=== PATIENT | female | born 1980 | race Caucasian/White ===

== ENCOUNTER 2016-10-27 09:45 | Inpatient (IN) | payer OTHER ==
[2016-10-27 10:40] LABS: BASOPHIL 0.5 % (0-2.0); EOSINOPHIL 1.4 % (0-4.5); MCH 27.9 pg (25.7-33.7); MCHC 32.5 g/dl (32.0-36.0); MEAN CELL VOLUME 85.9 fl (80-96); NEUTROPHILS 65.4 % (42.8-82.8); PLATELET COUNT 123 K/MM3 (134-434); RDW 17.8 % (11.6-15.6)
[2016-10-27] MEDS ORDERED: DINOPROSTONE 10 MG VAGINAL SUPPOSITORY VG ONE (10:45)
[2016-10-27] MEDS ORDERED: ELECTROLYTE-148 SOLN 1,000 ML IV ONE (10:45)
[2016-10-27] MEDS ORDERED: CITRIC ACID/SODIUM CITRATE 30 ML UNIT-DOSE CUP PO ONE (10:45)
[2016-10-27 10:48] VITALS: BMI 26.2
[2016-10-27 10:50] LABS: INR 0.9 (0.82-1.09); PROTHROMBIN TIME (PATIENT) 9.9 SEC (9.98-11.88)
[2016-10-27 10:52] LABS: ACTIVATED PTT 30.5 SECONDS (26.9-34.4)
[2016-10-27 10:58] LABS: ANION GAP 8 (8-16); CALCIUM 8.7 mg/dL (8.5-10.1); CO2 23 mmol/L (21-32); CREATININE 0.5 mg/dL (0.55-1.02); GLUCOSE,RANDOM 81 mg/dL (74-106)
--- NOTE | 2016-10-27 11:42 | PN ---
Progress Note (short form) - Note Progress Note: Patient without acute complaints 10/27/16 10/27/16 10:38 11:00 Temperature 98.2 F Pulse Rate 62 Respiratory 18 Rate Blood Pressure 106/67 ABD: soft, NT Cx: 1/long/high FHT: 130mod bhavani + accel, no decel TOCO: No Ctx Cervidil placed in posterior fornix. Risks / benefits / alternative discussed with accounts receivable supervisor. Patient expressed understanding
[2016-10-27] MEDS ORDERED: ELECTROLYTE-148 SOLN 1,000 ML IV SCH (11:45)
[2016-10-27] MEDS: DEXTROSE 5%-LACTATED RINGERS 1,000 ML IV SCH (15:20)
[2016-10-27] MEDS ORDERED: BUTORPHANOL TARTRATE 1 MG/ML VIAL IVPB ONE (21:00)
[2016-10-27] MEDS ORDERED: PROMETHAZINE HCL 25 MG/1 ML VIAL IVPB ONE (21:00)
[2016-10-27] MEDS: D5W-LR W/ 20 UNITS OXYTOCIN 1,000 ML IV SCH (21:30)
[2016-10-27] MEDS ORDERED: METHYLERGONOVINE MALEATE 0.2 MG/1 ML AMP IM PRN (22:01)
[2016-10-27] MEDS ORDERED: ACETAMINOPHEN 325 MG TABLET (FP) PO PRN (22:01)
[2016-10-27] MEDS ORDERED: BISACODYL 10 MG SUPP.RECT RC PRN (22:01)
[2016-10-27] MEDS ORDERED: BENZOCAINE 28 GM HEMORRHOIDAL OINTMENT TP PRN (22:01)
[2016-10-27] MEDS ORDERED: oxyCODONE HCL 5 MG TABLET PO PRN (22:01)
[2016-10-27] MEDS ORDERED: IBUPROFEN 600 MG TABLET (FP) PO PRN (22:01)
[2016-10-27] MEDS ORDERED: BENZOCAINE 20% 57 GM BOTTLE TP PRN (22:01)
[2016-10-27] MEDS ORDERED: WITCH HAZEL 50% (TUCKS) 40 PAD/JAR PAD TP PRN (22:01)
--- NOTE | 2016-10-27 22:10 | HP ---
Past Medical History - Primary Care Physician PCP:: Milka Wetzel - Admission Chief Complaint: 36 yrs , 40.5 wks admitted or induction of labor in AM today . sono on 10/25/16 reported sliup, vx, post placenta, bpp8/8, , Natasha 12.26 , , efw 7'1" nst reactive History of Present Illness: PNC at [address] [place] [address] . Wtgain 15 lbs work Up O Pos , Hbsag neg, Rpr nr,Hiv neg, Rubella immune, Sickle neg, Cf neg, Quantiferon neg, 1 Hr Gtt 37, f/u random BGS 82 , Gbs neg , gc/ct neg, Pap nilm AMA - refused NIPT or genetic counselling NT screen, Modified sequential neg sonos for detal growth were done by MFM reviewed History Source: Patient, Medical Record Limitations to Obtaining History: No Limitations - Past Medical History SUPPORT SERVICES COORDINATOR: No: Dementia, Migraine, Seizure Cardiovascular: No: HTN, Murmur Pulmonary: No: Asthma Gastrointestinal: Yes: Hemorrhoids. No: Gastritis ...: 3 ...Para: 2 ...Term: 2 (2 04/20/2001 40 wks in [place], 10/22/2009 in [facility]) ...LMP: 01/16/16 ... Weeks Gestation by Dates: 40.5 ...EDC by Dates: 10/22/16 ...EDC by Sono: 10/22/16 Heme/Onc: No: Anemia Infectious Disease: No: AIDS, HIV, STD's, Tuberculosis Psych: No: Addictions, Anxiety, Bipolar, Depression Endocrine: No: Diabetes Mellitus, Hyperthyroidism, Hypothyroidism - Past Surgical History Past Surgical History: Yes: None Hx Myomectomy: No Hx Transabdominal Cerclage: No - Smoking History Smoking history: Never smoked Have you smoked in the past 12 months: No - Alcohol/Substance Use Hx Alcohol Use: No History of Substance Use: reports: None Home Medications - Allergies Allergies/Adverse Reactions: Allergies Allergy/AdvReac Type Severity Reaction Status Date / Time No Known Allergies Allergy Verified 10/25/16 13:48 - Home Medications Home Medications: Ambulatory Orders Vit No.130/Iron/FA [ Vitamins] 1 each PO DAILY 07/17/17 Physical Exam - Maternity Vital Signs: Vital Signs Temperature 98.6 F 10/27/16 18:00 Pulse Rate 70 10/27/16 20:00 Respiratory Rate 20 10/27/16 20:00 Blood Pressure 112/69 10/27/16 20:00 O2 Sat by Pulse Oximetry (%) Selected Entries 10/27/16 10:38 Temperature 98.2 F Pulse Rate 76 Blood Pressure 101/67 Weight 143 lb Constitutional: Yes: Well Nourished Eyes: Yes: WNL HENT: Yes: WNL, Normocephalic Neck: Yes: WNL Cardiovascular: Yes: WNL, Regular Rate and Rhythm Lungs: Clear to auscultation Breast(s): Yes: WNL - Abdominal Exam/OB Fundal Height: 40 Number of Fetuses: Single Presentation: Vertex Contractions: Yes Regularity: Regular Intensity: Mod/Strong Monitor Mode: External Heart Rate (range): 140 Heart Rate Location: [facility] Category: I Accelerations: Uniform - Vaginal Exam/OB Vaginal Bleediing: Bloody Show Speculum Exam: No Dilatation (cm): 10 Effacement (%): 100 Amniotic Membrane Status: Intact Presentation: Vertex/Position (exam at 9.10 pm) Station: +2 - Physical Exam Musculoskeletal: Yes: WNL Extremities: Yes: WNL. No: Calf Tenderness Edema: Yes Edema: LLE: Trace, RLE: Trace Integumentary: Yes: WNL Deep Tendon Reflex Grade: Normal +2 ...Motor Strength: WNL Psychiatric: Yes: WNL, Alert, Oriented - Labs Lab Results: CBC, BMP 10/27/16 10:15 10/27/16 10:15 Laboratory Tests 10/27/16 10/27/16 10:15 10:15 INR 0.90 PTT (Actin FS) 30.5 RPR Titer Nonreactive Problem List - Problems (1) Post-term , 40-42 weeks of gestation Code(s): O48.0 - POST-TERM (2) Elective induction of labor planned Code(s): GGC4597 - Assessment/Plan 36 yrs ( Ama0 , 40.5 weeks IUP admitted for inductionof labor at 10.[address] Laguerre to insert cervidil in vagina at at 11.15 am pt progressed in labor with cervidil since 3.00pm she had irregular UC . 8.00 pm uc regular q1-2 min Cervidil removed 8.15 pm Stadol 2 mg + Phenrgan 25 mg iv stat for pain was give 9.10PM srom clear , fully dilated , Vx +2 , pt pushing 9.25 pm ,Baby Boy, vx Hardik position , 9/9 wt 7'9' 9.30 pm placenta delivered .& in j methergine 0.2 mg im given plan pp care
--- NOTE | 2016-10-27 22:30 | PN ---
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 Gbs neg cervidil inserted pt progressed in labor intrapartum course uneventful one dose of stadol + Phenrgan was given for labor analgesia
[2016-10-28] MEDS: D5W-LR W/ 20 UNITS OXYTOCIN 1,000 ML IV SCH ×2 (03:04→11:00)
[2016-10-28 07:38] LABS: BASOPHIL 0.2 % (0-2.0); EOSINOPHIL 0.2 % (0-4.5); MCH 28.3 pg (25.7-33.7); MCHC 32.7 g/dl (32.0-36.0); MEAN CELL VOLUME 86.5 fl (80-96); MEAN PLT VOLUME 10.9 fl (7.5-11.1); NEUTROPHILS 82.4 % (42.8-82.8); PLATELET COUNT 111 K/MM3 (134-434); RDW 17.8 % (11.6-15.6); WHITE BLOOD COUNT 10.2 K/mm3 (4.0-10.0)
[2016-10-28] MEDS: PRENATAL VITAMINS W/ FOLIC ACID TABLET (FP) PO SCH (09:01)
[2016-10-28] MEDS: FERROUS SO4 325 MG TABLET (FP) PO SCH ×2 (09:01→17:16)
[2016-10-28] MEDS ORDERED: DIPHTH,PERTUSS(ACELL),TET 0.5 ML DISP.SYRIN IM ONE (10:00)
--- NOTE | 2016-10-28 12:41 | DS ---
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 breast not engorged) Musculoskeletal: Yes: WNL Extremities: Yes: WNL. No: Calf Tenderness Edema: No Integumentary: Yes: WNL Neurological: Yes: WNL, Alert, Oriented ...Motor Strength: WNL Psychiatric: Yes: WNL, Alert, Oriented Labs: CBC, BMP 10/28/16 06:00 10/27/16 10:15 Delivery - Delivery Vaginal Delivery: No Problems, Spontaneous Type of Anesthesia: None Episiotomy/Laceration: None EBL (cc): 300 (inj Methergine 0.2 mg im given ) Delivery, Single - Stages of Labor Date 1st Stage Initiatied: 10/27/16 Time 1st Stage Initiated: 15:00 Date 2nd Stage Initiated: 10/27/16 Time 2nd Stage Initiated: 21:10 Date of Delivery: 10/27/16 Time of Delivery: 21:25 Time Placenta Delivered: 21:30 Placenta: Yes: Spontaneous, Uterine Exploration - Condition of Infant 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 Gbs neg cervidil inserted pt progressed in labor intrapartum course uneventful one dose of stadol + Phenrgan was given for labor analgesia pp course uneventful. discharge 10/29/16 Discharge Summary Reason For Visit: CERVIDIL INDUCTION Current Active Problems Elective induction of labor planned (Acute) Normal spontaneous vaginal delivery (Acute) Post-term , 40-42 weeks of gestation (Acute) Condition: Stable - Instructions Diet, Activity, Other Instructions: Post Instructions DIET: Continue good diet high in protein, calcium, and iron rich foods. Drink at least eight (8) glasses of water daily in addition to other fluids. ct Regular diet MEDICATIONS: Continue vitamins and iron as previously directed. Motrin and Tylenol may be taken for minor discomfort. ACTIVITY: Mild to moderate exercise may be started in two (2) weeks. Take frequent rest periods. Resume normal activity after six (6) week check up. WOUND CARE OF OPERATIVE SITE: Continue use of perineal bottle until vaginal discharge stops. Keep area clean. Shower daily. Keep abdominal wound dry. Report any drainage or redness to physician. Tub baths, tampons and douches are not permitted for 6 weeks. Breast feeding & or Bottle feeding BREAST CARE: (For those that are not breast feeding): If engorgement occurs: Wear tight fitting bra. Take Tylenol or Motrin for pain. Apply cold packs (ice in bags to each breast ) FAMILY PLANNING: There are many control alternatives to pursue and they should be discussed at your first office visit. You may resume sexual activity after your six (6) week check up. (Remember, breast feeding is not a contraceptive) NEXT PHYSICIAN APPOINTMENT: Be certain to call for a six (6) week appointment, unless otherwise directed. Call Clinic or got to Emergency Dept if you have any of the following: Heavy vaginal bleeding Painful urination Leg pain Unusual odor noted to vaginal bleeding High fever Red streaking noted on breast Referrals: Milka Wetzel MD [Staff Physician] - Disposition: HOME - Home Medications Comprehensive Discharge Medication List: Ambulatory Orders Vit No.130/Iron/FA [ Tablet] 1 each PO DAILY 10/25/16 Acetaminophen [Tylenol .Regular Strength -] 650 mg PO Q3H PRN #0 tablet Ibuprofen [Motrin -] 200 mg PO Q4H PRN #0 tablet 10/28/16 Vitamins (Sjr) - 1 tab PO DAILY tablet 10/28/16
[2016-10-28] MEDS: DEXTROSE 5%-LACTATED RINGERS 1,000 ML IV SCH (20:50)
[2016-10-28] MEDS ORDERED: SENNOSIDES/DOCUSATE COMBO (SENNA PLUS) TABLET (UD) PO PRN (22:00)
[2016-10-29 07:49] VITALS: BP 112/57; PULSE 59; TEMP 98.3
--- NOTE | 2016-10-29 08:17 | PN ---
Progress Note (short form) - Note Progress Note: ppd 2 no c/o voids ok, no excess vaginal bleeding uterus firm lochia mild no calf tenderness CBC, BMP 10/28/16 06:00 10/27/16 10:15 Last Vital Signs Temp Pulse Resp BP Pulse Ox 98.3 F 59 L 20 112/57 10/29/16 07:47 10/29/16 07:47 10/29/16 07:47 10/29/16 07:47 d/c home, rtc 4 week, instruction given
[2016-10-29] MEDS: FERROUS SO4 325 MG TABLET (FP) PO SCH (08:58)
[2016-10-29] MEDS: PRENATAL VITAMINS W/ FOLIC ACID TABLET (FP) PO SCH (08:59)
== END 2016-10-29 13:00 | disposition home or self-care (01) | DRG 560 ==
LOC: JLDR 09:45 → J3W 10-28 01:07
PROVIDERS: ADMIT Obstetrics & Gynecology; ATTEND Obstetrics & Gynecology
PROC: 10E0XZZ Delivery of Products of Conception, External Approach (ICD-10-PCS; principal; 2016-10-27)
PROC: 3E0P7GC Introduction of Other Therapeutic Substance into Female Reproductive, Via Natural or Artificial Opening (ICD-10-PCS; 2016-10-27)
DX: O48.0 Post-term pregnancy (principal); Z3A.40 40 weeks gestation of pregnancy; Z37.0 Single live birth
CPT/HCPCS: 36415; 59409; 80048; 85025; 85610; 85730; 86593; 86850; 86900; 86901; 90715